=== PATIENT | male | born 1985 | race Two or more races ===

== ENCOUNTER 2018-12-21 07:17 | Outpatient (CLI) | payer OTHER | END 2018-12-21 07:23 | disposition home or self-care (01) | LOC: SONOGRAMA 07:17 | DX: E04.2 Nontoxic multinodular goiter (principal) ==

== ENCOUNTER 2021-08-16 12:01 | Emergency (ER) | payer OTHER ==
[~2021-08-16] VITALS: Ht 167.6 cm; Wt 86.2 kg
[2021-08-16] MEDS ORDERED: LEVOTHYROXINE25 MCG PO (12:11)
== END 2021-08-16 15:29 | disposition home or self-care (01) ==
LOC: ER 12:01
DX: A04.9 Bacterial intestinal infection, unspecified (principal); R19.7 Diarrhea, unspecified; Z88.8 Allergy status to other drugs, medicaments and biological substances

== ENCOUNTER 2022-10-25 10:46 | Outpatient (CLI) | payer OTHER ==
[~2022-10-25 10:46] MED LIST: LEVOTHYROXINE25 MCG PO
== END 2022-10-25 10:47 | disposition home or self-care (01) ==
LOC: NUCLEAR 10:46
PROVIDERS: ATTEND Internal Medicine Sports Medicine
DX: C73 Malignant neoplasm of thyroid gland (principal)